=== PATIENT | male | born 1940 | race Caucasian/White ===

== ENCOUNTER → 2016-05-15 | Outpatient (CLI) | payer MEDICARE, BC ==
[2016-05-15 09:19] LABS: CHLORIDE,CL 108 mmol/L (98-110); SODIUM,NA 142 mmol/L (136-146)
== END ==
LOC: MW.CHFP 08:14
PROVIDERS: ATTEND Emergency Medicine
DX: I10 Essential (primary) hypertension (principal)
CPT/HCPCS: 36415; 80048; 80061; 99214

== ENCOUNTER → 2016-07-17 | Outpatient (CLI) | payer MEDICARE, BC | LOC: MW.CHFP 10:22 | PROVIDERS: ATTEND Emergency Medicine | DX: Z12.5 Encounter for screening for malignant neoplasm of prostate (principal) | CPT/HCPCS: 36415; G0103 ==

== ENCOUNTER 2019-12-31 06:32 | Day surgery (SDC) | payer MEDICARE, BC ==
[~2019-12-31 06:32] MED LIST: Lactated Ringers 1,000 ML IV SCH
--- NOTE | 2019-12-31 07:10 | PCM.PREANE ---
Preanesthetic Assessment - Anesthesia/Transfusion/Family Hx Anesthesia History: No Prior Anesthesia Family History of Anesthesia Reaction: No Transfusion History: No Prior Transfusion(s) Intubation History: Unknown - Review of Systems General: No Symptoms Pulmonary: No Symptoms Cardiovascular: No Symptoms Gastrointestinal: Other (cologuard positive) Neurological: No Symptoms Other: Reports: None - Physical Assessment Height: 5 ft 10 in Weight: 89.811 kg ASA Class: 2 Mental Status: Alert & Oriented x3 Airway Class: Mallampati = 2 Dentition: Reports: Normal Dentition, Partial (lower, fixed), [place](s) (multiple upper front) Thyro-Mental Finger Breadths: 3 Mouth Opening Finger Breadths: 2 (small mouth) ROM/Head Extension: Full Lungs: Clear to Auscultation, Normal Respiratory Effort Cardiovascular: Regular Rate, Regular Rhythm - Allergies Allergies/Adverse Reactions: Allergies Allergy/AdvReac Type Severity Reaction Status Date / Time atenolol Allergy Cough Verified 12/25/19 13:56 banana Allergy Nausea Verified 12/25/19 14:15 iodine Allergy Anaphylactic Verified 02/18/18 19:45 Shock shellfish derived Allergy Nausea and Verified 02/18/18 19:45 Vomiting shrimp Allergy Nausea and Uncoded 02/05/18 17:18 Vomiting - Blood Blood Available: No - Anesthesia Plan Pre-Op Medication Ordered: None - Acknowledgements Anesthesia Type Planned: MAC Pt an Appropriate Candidate for the Planned Anesthesia: Yes Alternatives and Risks of Anesthesia Discussed w Pt/Guardian: Yes Pt/Guardian Understands and Agrees with Anesthesia Plan: Yes PreAnesthesia Questionnaire - Past Health History Medical/Surgical History: Denies Medical/Surgical History HEENT History: Reports: Hard of Hearing, Impaired Vision Other HEENT History: wears glasses and is hard of hearing Cardiovascular History: Reports: Hypertension Respiratory History: Reports: None Gastrointestinal History: Reports: None Genitourinary History: Reports: None NEURODIAGNOSTIC TECH History: Musculoskeletal History: Reports: None Neurological History: Reports: None Psychiatric History: Reports: None Endocrine/Metabolic History: Reports: None Hematologic History: Reports: None Immunologic History: Reports: None Oncologic (Cancer) History: Reports: None Dermatologic History: Reports: None - Infectious Disease History Infectious Disease History: Reports: Chicken Pox, Measles, Mumps - Past Surgical History Head Surgeries/Procedures: Reports: None Cardiovascular Surgical History: Reports: None Respiratory Surgical History: Reports: None GI Surgical History: Reports: None Female Surgical History: Reports: None Male Surgical History: Reports: None - SUBSTANCE USE Tobacco Use Within Last Twelve Months: Smokeless Tobacco - HOME MEDS Home Medications: Home Meds Zolpidem [Ambien] 10 mg PO BEDTIME 02/06/18 [History] Clotrimazole [Lotrimin AF 1% Crm] 30 gm TOP BID PRN 12/25/19 [History] Losartan Potassium 50 mg PO BEDTIME 12/25/19 [History] - CURRENT (IN HOUSE) MEDS Current Meds: Current Medications Lactated Ringer's (Ringers, Lactated) 1,000 mls @ 125 mls/hr IV ASDIRECTED MARINA
[2019-12-31] MEDS ORDERED: Propofol 200 MG/20 ML SDV ONE (07:24)
[2019-12-31] MEDS ORDERED: fentaNYL 100 MCG/2 ML SDV ONE (07:24)
[2019-12-31] MEDS ORDERED: Midazolam 1 MG/ML 2 ML SDV ONE (07:24)
[2019-12-31] MEDS ORDERED: EPINEPHrine 1:10,000 1 MG/10 ML Syringe IVPUSH PRN (08:19)
[2019-12-31] MEDS ORDERED: fentaNYL 100 MCG/2 ML SDV IVPUSH PRN (08:19)
[2019-12-31] MEDS ORDERED: Naloxone 0.4 MG/ML Syringe IVPUSH PRN (08:19)
[2019-12-31] MEDS ORDERED: Albuterol 0.083% 2.5 MG/3 ML Neb Soln NEB PRN (08:19)
[2019-12-31] MEDS ORDERED: Atropine 0.1 MG/ML 10 ML Syringe IVPUSH PRN ×2 (08:19)
[2019-12-31] MEDS ORDERED: 50% Dextrose in Water 50 ML Syringe IVPUSH PRN (08:19)
[2019-12-31] MEDS ORDERED: Ondansetron 4 MG/2 ML SDV IVPUSH PRN (08:20)
--- NOTE | 2019-12-31 08:42 | PCM.OPNOTE ---
- General Post-Op/Procedure Note Date of Surgery/Procedure: 12/31/19 Operative Procedure(s): normal colon, internal hemorrhoids Findings: Normal colon. dictation #[id number] Pre Op Diagnosis: Positive cologuard Post-Op Diagnosis: normal colon, internal hemorrhoids Anesthesia Technique: Moderate Sedation Primary Surgeon: Ugo Ramires Pathology: none EBL in mLs: 0 Condition: Good
--- NOTE | 2019-12-31 08:58 | PCM.POSTAN ---
POST ANESTHESIA ASSESSMENT - MENTAL STATUS Mental Status: Alert, Oriented - VITAL SIGNS Vital Signs: Last Vital Signs Temp Pulse 66 12/31/19 08:37 Resp 11 L 12/31/19 08:37 BP 116/65 12/31/19 08:37 Pulse Ox 94 L 12/31/19 08:37 - RESPIRATORY Respiratory Status: Respiratory Rate WNL, Airway Patent, O2 Saturation Stable - CARDIOVASCULAR CV Status: Pulse Rate WNL, Blood Pressure Stable - GASTROINTESTINAL GI Status: No Symptoms - PAIN Pain Score: 0 - POST OP HYDRATION Hydration Status: Adequate & Stable - OBSERVATIONS Free Text/Narrative:: No anesthesia problems
--- NOTE | 2019-12-31 08:59 | PCM48HPAN ---
Post Anesthesia Note - EVALUATION WITHIN 48HRS OF ANESTHETIC Vital Signs in Normal Range: Yes Patient Participated in Evaluation: Yes Respiratory Function Stable: Yes Airway Patent: Yes Cardiovascular Function Stable: Yes Hydration Status Stable: Yes Pain Control Satisfactory: Yes Nausea and Vomiting Control Satisfactory: Yes Mental Status Recovered: Yes Vital Signs: Last Vital Signs Temp Pulse 66 12/31/19 08:37 Resp 11 L 12/31/19 08:37 BP 116/65 12/31/19 08:37 Pulse Ox 94 L 12/31/19 08:37 - COMMENTS/OBSERVATIONS Free Text/Narrative:: No anesthesia problems
--- NOTE | 2019-12-31 15:36 | OR ---
SURGEON: GUS GARNER MD DATE OF PROCEDURE: 12/31/2019 PREOPERATIVE DIAGNOSIS: Positive Cologuard. POSTOPERATIVE DIAGNOSIS: Internal hemorrhoids. PROCEDURE PERFORMED: Colonoscopy. PRIMARY SURGEON: Gus Garner MD ANESTHESIA: General. EXTENT OF COLONOSCOPY: To the cecum. WITHDRAWAL TIME: 11 minutes. LIMITATIONS: None. BOWEL PREP: Excellent. REASON FOR PROCEDURE: The patient is a pleasant 79-year-old gentleman who had a positive Cologuard. He has not had a colonoscopy before. He denies any blood in the stool and he denies any family history of colon cancer. PROCEDURE IN DETAIL: Physical examination was performed. The major risks and benefits associated with the procedure were explained to the patient in detail. The procedure verbalized understanding of the same. The patient was then connected to appropriate monitoring devices. EKG, pulse, pulse oximetry, blood pressure, and capnography were monitored throughout the entire procedure. Continuous oxygen and sedation were provided by the anesthesiologist. The patient was placed in left lateral decubitus position. Anesthesia was given. After adequate sedation was achieved, digital rectal exam was performed. No rectal masses or polyps were felt. Now, a well-lubricated Olympus colonoscope was entered in the rectum and advanced under direct visualization to the level of the cecum. Cecum was identified by both visual and anatomic landmarks. Photograph was taken of the cecal cap. Scope was then slowly withdrawn in somewhat circular fashion looking at the color, texture, anatomy, and integrity of the mucosa from the cecum to the anal canal. The patient had some very minimal retained prep, which was then suctioned and irrigated out with excellent look at the mucosa. No polyps or masses were seen. Scope was retroflexed in the rectum, did have some noninflamed internal hemorrhoids. Scope was completely removed, and the procedure was terminated. ENDOSCOPIC DIAGNOSIS: Normal colonoscopy. RECOMMENDATIONS: Followup colonoscopy in 10 years, sooner if he develops signs or symptoms, such as change in bowels or blood in the stool; however, 10 years will put him at 89, which is currently beyond recommendation for screening. The patient will discuss with his PCP if there is need for any ongoing screening. CHARLIE / CINDY /[id number]
== END 2019-12-31 09:00 | disposition home or self-care (01) ==
LOC: MW.SDS 06:32
PROVIDERS: ATTEND Surgery
DX: R19.5 Other fecal abnormalities (principal); K64.8 Other hemorrhoids; F51.04 Psychophysiologic insomnia; I10 Essential (primary) hypertension; H90.3 Sensorineural hearing loss, bilateral; F17.290 Nicotine dependence, other tobacco product, uncomplicated; K42.9 Umbilical hernia without obstruction or gangrene; Z88.8 Allergy status to other drugs, medicaments and biological substances; Z91.013 Allergy to seafood; Z79.899 Other long term (current) drug therapy; Z91.018 Allergy to other foods
CPT/HCPCS: 45378; J2001; J2704; J7120; J2250; J3010

== ENCOUNTER 2022-11-30 09:27 | Emergency (ER) | payer MEDICARE, BC ==
[2022-11-30] MEDS ORDERED: Sodium Chloride 0.9% 10 ML Syringe FLUSH PRN (09:53)
[2022-11-30] MEDS ORDERED: Sodium Chloride 0.9% 2.5 ML Syringe FLUSH PRN (09:53)
[2022-11-30 10:20] LABS: BASOPHILS PERCENT AUTO 0.6 % (0.0-1.5); EOSINOPHILS ABSOLUTE AUTO 0.2 K/uL (0.0-0.7); EOSINOPHILS PERCENT AUTO 3.1 % (0.0-7.0); HEMOGLOBIN 16.1 g/dL (13.0-17.0); LYMPHOCYTES PERCENT AUTO 18.9 % (16.0-40.0); MEAN CORPUSCULAR HEMOGLOBIN 31.3 pg (27.0-32.0); MEAN CORPUSCULAR HGB CONC 34.3 g/dL (31.0-37.0); MEAN CORPUSCULAR VOLUME 91.3 fL (80.0-98.0); MONOCYTES ABSOLUTE AUTO 0.4 K/uL (0.0-0.8); NEUTROPHILS ABSOLUTE AUTO 3.8 K/uL (1.4-5.7); NEUTROPHILS PERCENT AUTO 70.4 % (48.0-80.0); NRBC ABSOLUTE 0 K/uL; PLATELET COUNT,PLT 240 K/uL (150-400); RED BLOOD CELL COUNT 5.15 M/uL (4.50-5.90); WHITE BLOOD CELL COUNT,WBC 5.44 K/uL (4.0-11.0)
[2022-11-30 11:08] LABS: A/G RATIO 0.9 (0.9-1.6); ALBUMIN 3.8 g/dL (3.4-5.0); BILIRUBIN TOTAL 0.5 mg/dL (0.2-1.0); CARBON DIOXIDE,CO2 26.3 mmol/L (21.0-32.0); CREATININE 1.1 mg/dL (0.8-1.3); EST CRCL DRUG DOSING (CG) 51.78 mL/min; POTASSIUM,K 4.6 mmol/L (3.5-5.1); PROTEIN TOTAL,TP 7.8 g/dL (6.4-8.2)
== END 2022-11-30 14:30 | disposition home or self-care (01) ==
LOC: MW.ED 09:27
DX: R53.83 Other fatigue (principal); R53.81 Other malaise; K64.4 Residual hemorrhoidal skin tags; I10 Essential (primary) hypertension; Z79.899 Other long term (current) drug therapy; Z91.041 Radiographic dye allergy status; Z91.013 Allergy to seafood; Z88.8 Allergy status to other drugs, medicaments and biological substances; Z91.018 Allergy to other foods
CPT/HCPCS: 36415; 74176; 80053; 83690; 84484; 85025; 86850; 86900; 86901; 93005; 99285; J3490; 93010; 99283